=== PATIENT | female | born 1935 | race Caucasian/White ===

== ENCOUNTER 2019-07-03 08:44 | Emergency (ER) | payer OTHER ==
[~2019-07-03] VITALS: Ht 154.9 cm; Wt 57.1 kg
[2019-07-03] MEDS ORDERED: LIDODERM1 EACH TOP (09:58)
[2019-07-03] MEDS ORDERED: NORCO 5-325 TA1 EAC1 PO (09:58)
[2019-07-03 10:28] VITALS: BP 135/61
== END 2019-07-03 10:28 | disposition home or self-care (01) ==
LOC: ER 08:44
DX: S22.41XA Multiple fractures of ribs, right side, initial encounter for closed fracture (principal); Z88.0 Allergy status to penicillin; Z88.5 Allergy status to narcotic agent; W10.9XXA Fall (on) (from) unspecified stairs and steps, initial encounter; Y93.89 Activity, other specified; Y92.89 Other specified places as the place of occurrence of the external cause; Y99.8 Other external cause status